=== PATIENT | male | born 1995 | race Caucasian/White ===

== ENCOUNTER 2022-10-20 11:47 | Emergency (ER) | payer SELFPAY ==
[2022-10-20 11:56] VITALS: BP 150/109; PULSE 84; RESP 16; TEMP 36.6; O2SAT 98
--- NOTE | 2022-10-20 13:49 | W.ED.GENAD ---
Discharge Plan Disposition Patient Disposition: Home Condition: Poor Discharge Details Clinical Impression: Otitis externa, Mass of right parotid gland Primary Care Provider: Unknown,Unknown ED Provider: Kristie Fisher Home Meds and New Rx's Prescriptions: Continued ibuprofen 200 MG tablet 1 tab PO PRN PRN Discharge Instructions Instructions: Ciprofloxacin/Dexamethasone (Into the ear), Otitis Externa (ED) Additional Instructions: Your exam and imaging are concerning for signifcant infection to your outter ear. Please take the oral antibiotics as prescribed. Take a probiotic with this. Please instill 4 drops of the Ciprodex twice a day for the next week. Please call ENT tomorrow, number listed below, to schedule follow up with Dr. Hernandez in the next week. They will ensure you are recovering from your infection and continue to evaluate you for the mass in your parotid gland. If you develop fevers/chills, increase pain, difficulty swallowing or other new/worsening symptoms please seek care urgently once again. Referrals: Elder Hernandez MD [ [facility] STAFF PHYSICIAN] - Discharge Data Discharge Date/Time-TO BE ENTERED AT DEPARTURE: 10/20/22 16:26 Medical Decision Making Patient is a pleasant 27-year-old male presenting today with chief complaint of right ear pain. He reports that he began about 8 days ago. He states that he felt like pain was improving about 3 days ago and then significantly worsened yesterday. States that he has been having drainage from the right ear. States that about 2 weeks ago he had a cold which seemed to lead into the right ear pain although his other URI symptoms had improved at the time of onset of discomfort. States that now he is not able to hear anything at the right-sided ear. Denies any fevers. On exam, patient appears nontoxic. He is hypertensive. Afebrile. He has significant swelling of the external ear canal on the right side, unable to visualize the right tympanic membrane associated with the significant swelling. He does have some discharge in the right ear. He also has pain with palpation over the mastoid an area of swelling and fluctuance extending just inferior to the ear along the mandibular angle. Concern for potential mastoiditis and possible abscess. Plan for CT with contrast as well as baseline labs. We will begin IV clindamycin. Labs reviewed, no significant abnormality. Reviewed CT, will consult with ENT. Contact by radiologist who advised parotid mass. No mastoiditis. Notable inflammatory changes to the right ear canal. Parotid appears more consistent with mass, he advises urgent ENT evaluation. Consulted with Dr. Hernandez with ENT. He reviewed the CT remotely. He advised that patient has raging otitis externa, possible mass int he deep parotid. He aslo recommended reviewing the CT again with radiologist as there was question for meningeal enhancement. He advised putting patient on ciprodex, oral cipro and that he will see him in the office for bx. Spoke again with radiology. He advised no evidence of meningeal enhancement. MAXILLARY SINUSES: There is prominent mucosal thickening throughout the right maxillary sinus and right ostiomeatal unit.? In addition, there is a small defect in the medial wall of the right maxillary sinus which may be postsurgical. There is also also some mucosal thickening in the anterior medial wall of the left maxillary sinus.? Mucosal thickening also noted in the right sphenoid sinus.? Left sphenoid sinus is clear.? There is mild mucosal thickening in the right frontal sinus.? Mild mucosal thickening in ethmoidal air cells. There is no evidence of bone dehiscence. The nasal septum is deviated towards the left side.? There is a left-sided nasal septal spur.? Orbits: Unremarkable. Other: There is a large enhancing mass in the right parotid gland which measures approximately 6 cm wide by 4 cm AP by 5.5 cm craniocaudal and which involves both the superficial and deep lobes of the right parotid gland..? There is some overlying fat tissue streaking.? Slightly prominent regional lymph nodes are noted measuring up to 1.4 cm size.? There appear to be a few calcifications in the superior aspect of the gland.? This enhancing mass contains vessels.? The opposite-left parotid gland appears unremarkable. There also contiguous findings with thickening of the aparicio of the right external auditory canal.? There is also some fluid in the middle ear cavity some fluid in the ipsilateral right mastoid air cells. No obvious calcifications noted within Stensen's/parotid duct. The submandibular glands appear unremarkable. IMPRESSION: 1.? There is a large enhancing mass involving both the deep and superficial lobes of the right parotid gland, measuring approximately 6 cm wide by 4 cm AP by 5.5 cm craniocaudal.? Main considerations are for infectious process versus neoplasm the parotid. 2.? There is abnormal thickening of the ipsilateral right external auditory canal.? Probably consistent with otitis externa.? There is also some fluid in the right middle ear cavity and right mastoid air cells.. Prominent mucosal thickening in the right maxillary sinus with evidence of possible prior endoscopic sinus surgery.? Small defect noted in the medial wall the right maxillary sinus.? Lesser amount of mucosal thickening noted in left maxillary sinus, right sphenoid sinus, and frontal sinuses.? No bone dehiscence evident. ENT consultation recommended both oral and drop abx. Advised Ciprodex in ear. He advised that he will see the patietn in the office for further evaluation of the parotid mass that has be present for several years. He did not recommend drainage or immediate intervention at this tinme. Discussed finding and recommendations with patient. He is concerned that he does not have insurance currently, I have asked our care management team to assist with this. Will start on abx. encouraged hydration. Advised on supportive measurements. Strict return precautions are discussed. All of his questions and concerns were discussed, he is in agreement with this plan. Sign Out No HPI General Date/Time Provider Initiated Documentation: 10/20/22 13:38. Limitations to Documentation: no limitations. Information obtained by: patient and old records reviewed. History of Present Illness 27 year old M presents to the emergency department with the chief complaint of right ear pain, right sided facial swelling, described as moderate, with intensity rated at 7. Quality is described as aching, and is localized to the face. Patient neck. Patient started experiencing this week(s) (parotid swelling has been ongoing for years, unclear if progressive change) and it has been constant. No relieving factors improve symptom(s), No exacerbating factors reported . Patient notes fever/chills, headaches and malaise; denies chest pain, cough, nausea/vomiting, rash, shortness of breath and weakness. Patient did receive the following treatments prior to arrival, none Related Data Home Medications Medication Instructions Recorded Confirmed ibuprofen 200 mg tablet 1 tab PO PRN PRN 07/25/15 10/27/22 Allergies Allergy/AdvReac Type Severity Reaction Status Date / Time No Known Allergies Allergy Unverified 10/27/22 10:29 General Stated Complaint: EarProblem DEBBIE: 4 Review of Systems Constitutional Constitutional: Reports as per HPI Eyes Eyes: Reports as per HPI, Denies eye discharge and Denies irritation ENT Ears, Nose, Mouth, and Throat: Reports as per HPI Cardiovascular Cardiovascular: Reports as per HPI, Denies chest pain and Denies dyspnea Respiratory Respiratory: Reports as per HPI and Denies dyspnea Gastrointestinal Gastrointestinal: Reports as per HPI, Denies abdominal pain, Denies change in bowel habits, Denies nausea and Denies vomiting Integumentary/Breasts Skin/Breast: Reports as per HPI and Denies rash Neurologic Neurologic: Reports as per HPI [facility] All Active Problems (Updated 10/20/22 @ 16:17 by OSMANI Reeves) Otitis externa (Acute) Mass of right parotid gland (Acute) Social History Smoking/Tobacco Use Status: Current every day Tobacco Type: cigarettes Smoking risk assessment performed?: Yes Drug use: Occasionally Substance use type: does not use Do you feel safe at home: Yes Do you feel safe in your relationship?: Yes Exam Const General: cooperative, healthy appearing, comfortable, no acute distress, well developed and well groomed Nutritional Appearance: average body habitus and well nourished Orientation: alert and awake HENMT Head: normal to inspection, normocephalic and atraumatic Ears: hearing grossly normal bilaterally, external ears normal, right TM abnormal (unable to visualized TM, canal is swollen, erythematous with white discharg), mastoid abnormal (right tender) and periauricular adenopathy General nose exam: external nose normal and nares normal Face and sinus: sinuses nontender, face asymmetric (swelling right parotid), no crepitus and no erythema Mouth: oral mucosae normal, lip normal, tongue normal, oropharynx normal and moist mucous membranes Teeth and gingiva: dentition normal Throat: posterior oropharynx normal, tonsils normal and uvula midline Eyes General: appearance normal, both eyes and all related structures Neck Neck: normal visual inspection, full ROM, no meningeal signs and lymphadenopathy Resp Effort & Inspection: normal respiratory effort, able to speak in complete sentences and no respiratory distress Auscultation: clear to auscultation bilaterally, no rales, no rhonchi and no wheezes Cardio Rate: regular rate Rhythm: regular rhythm Heart Sounds: S1 normal and S2 normal Skin General skin exam: no rashes or lesions noted Neuro General: patient alert and patient awake Cognition: normal cognition Speech: speech normal Gait: normal gait Psych Appearance: grossly normal and well kempt Mental Status: mental status grossly normal Speech and Movement: speech and movement normal Course Vital Signs Vital signs: Vital Signs Temperature 36.6 C 10/20/22 11:56 Pulse 84 10/20/22 11:56 Respiratory Rate 16 10/20/22 11:56 Blood Pressure 150/109 H 10/20/22 11:56 Pulse Oximetry 98 10/20/22 11:56 Temperature 36.6 C 10/20/22 11:56 Temperature Source Temporal Artery Scan 10/20/22 11:56 Pulse 84 10/20/22 11:56 Respiratory Rate 16 10/20/22 11:56 Respiratory Effort 10/20/22 12:00 Blood Pressure 150/109 H 10/20/22 11:56 Blood Pressure Position Sitting 10/20/22 11:56 Pulse Oximetry 98 10/20/22 11:56 Oxygen Delivery Method Room Air 10/20/22 11:56 Oxygen Flow Rate 0 10/20/22 11:56 Pain Level 7 10/20/22 12:01 PAWSS Have you Been Recently Intoxicated or Drunk Within the Last 30 days?: Yes Have you Ever Experienced Previous Episodes of Alcohol Withdrawal?: No Have you ever Experienced Withdrawal Seizures?: No Have you ever Experienced Delirium Tremens(DT)s?: No Have you ever undergone Alcohol Rehabilitation Treatment (i.e, inpt ot outpatient treatment programs)?: No Have you ever Experienced Blackouts?: No Have you ever Combined Alcohol with other Downers within the last 90 days?: No Have you ever Combined Alcohol with any other Substance of Abuse during the last 90 days?: No Positive Blood Alcohol level on Presentation? [PCS.BAL]: No Evidence of Increased Autonomic Activity (i.e. HR>120, tremor, sweating, agitation, nausea)?: No Result: 1
[2022-10-20 14:26] LABS: Abs Immature Grans 0.03 10^3/uL (0.0-0.06); Absolute Basophil Count 0.03 10^3/uL (0.0-0.2); Absolute Eosinophil Count 0.12 10^3/uL (0.0-0.7); Absolute Neutrophil Count 6.62 10^3/uL (1.2-6.7); Basophils % 0.3; Eosinophils % 1.3; HCT 48.5 % (40.0-50.0); Immature Grans % 0.3; Lymphocytes % 16.5; MCH 27.7 pg (27.0-33.0); MCV 84 fL (80-95); MPV 10.4 fL (8.0-11.0); Monocytes % 8.8; Neutrophils % 72.8; Platelet Count 196 10^3/uL (130-400); RBC 5.78 10^6/uL (4.36-5.78); RDW 12.2 % (11.8-14.1); RDW-SD 37.2 fL
[2022-10-20] MEDS: Omnipaque 350 MG/ML 100 ML BTL IJ (14:36)
[2022-10-20] MEDS: Normal Saline - Diluent 50 ML VIAL IV (14:37)
--- NOTE | 2022-10-20 14:38 | DI.CT_ITS ---
Exam(s) CT SINUS W EXAM: CT SINUS W CLINICAL HISTORY: right ear pain, swelling, mastoid pain, fluctuance. TECHNIQUE: Imaging Protocol: Axial computed tomography images with coronal and sagittal reformatted images were created and reviewed. No IV Contrast COMPARISON: No exams were available for comparison FINDINGS: MAXILLARY SINUSES: There is prominent mucosal thickening throughout the right maxillary sinus and right ostiomeatal unit . In addition, there is a small defect in the medial wall of the right maxillary sinus which may be postsurgical. There is also also some mucosal thickening in the anterior medial wall of the left maxillary sinus. Mucosal thickening also noted in the right sphenoid sinus. Left sphenoid sinus is clear. There is m ild mucosal thickening in the right frontal sinus. Mild mucosal thickening in ethmoidal air cells. There is no evidence of bone dehiscence. The nasal septum is deviated towards the left side. There is a left-sided nasal septal spur. Orbits: Unremarkable. Other: There is a large enhancing mass in the right parotid gland which measures approximately 6 cm w bhupendra by 4 cm AP by 5.5 cm craniocaudal and which involves both the superficial and deep lobes of the r ight parotid gland.. There is some overlying fat tissue streaking. Slightly prominent regional lymp h nodes are noted measuring up to 1.4 cm size. There appear to be a few calcifications in the superi or aspect of the gland. This enhancing mass contains vessels. The opposite-left parotid gland appea rs unremarkable. There also contiguous findings with thickening of the aparicio of the right external auditory canal. Th ere is also some fluid in the middle ear cavity some fluid in the ipsilateral right mastoid air cells . No obvious calcifications noted within Stensen's/parotid duct. The submandibular glands appear unremarkable. IMPRESSION: 1. There is a large enhancing mass involving both the deep and superficial lobes of the right paroti d gland, measuring approximately 6 cm wide by 4 cm AP by 5.5 cm craniocaudal. Main considerations ar e for infectious process versus neoplasm the parotid. 2. There is abnormal thickening of the ipsilateral right external auditory canal. Probably consiste nt with otitis externa. There is also some fluid in the right middle ear cavity and right mastoid ai r cells.. Prominent mucosal thickening in the right maxillary sinus with evidence of possible prior endoscopic sinus surgery. Small defect noted in the medial wall the right maxillary sinus. Lesser amount of mu cosal thickening noted in left maxillary sinus, right sphenoid sinus, and frontal sinuses. No bone d ehiscence evident. ENT consultation recommended. Report discussed with ER physician. RADIATION DOSE DELIVERED: 621.22mGy.cm Total DLP DATA REPOSITORY: All CT scans at this facility are submitted to the National Radiology Data Registry (NRDR) Dose Index Registry (DIR) with the [employer] ([employer]). RADIATION OPTIMIZATION: All CT scans at this facility use at least one of these dose optimization te chniques: automated exposure control; mA and/or kV adjustment per patient size (includes targeted exa ms where dose is matched to clinical indication); or iterative reconstruction.
[2022-10-20 14:40] LABS: ALT 46 U/L (16-63); AST 22 U/L (15-37); Albumin 3.9 g/dL (3.4-5.0); Alkaline Phosphatase 104 U/L (46-116); Anion Gap 7.9 mmol/L (3-11); BUN 11 mg/dL (7-18); Bilirubin, Total 0.8 mg/dL (0.2-1.0); CO2 28.1 mmol/L (21.0-32.0); CREATININE 0.9 mg/dL (0.70-1.30); Chloride 102 mmol/L (98-107); Estimated GFR 119.31 (mL/min/1.73m2); Glucose 102 mg/dL (74-106); Potassium 4.4 mmol/L (3.5-5.1); Sodium 138 mmol/L (136-145); Total Protein 7.7 g/dL (6.4-8.2)
[2022-10-20 15:50] VITALS: PULSE 70; RESP 18; O2SAT 99
[2022-10-20] MEDS: Ciprofloxacin 250 MG TAB 750 MG PO (16:01)
[2022-10-20] MEDS: Ciprofloxacin/Dexameth. 7.5 ML BTL AD (16:01)
--- NOTE | 2022-10-20 16:01 | NUR.NOTE ---
Nursing Note: RERFERRAL TO ENT AND CM
--- NOTE | 2022-10-20 16:24 | PDOC.ERCMPRO ---
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 CM faxed NASRIN a referral, patient needs help applying for Medicaid and [facility].
== END 2022-10-20 16:26 | disposition home or self-care (01) ==
PROVIDERS: Emergency Provider Physician Assistant
DX: H60.91 Unspecified otitis externa, right ear (principal); K11.8 Other diseases of salivary glands; J34.89 Other specified disorders of nose and nasal sinuses; R59.0 Localized enlarged lymph nodes
CPT/HCPCS: 36415; 80053; 96361; 96365; 99284; 70487; 85025; J3490

== ENCOUNTER 2022-11-05 15:20 | Outpatient (REF) | payer SELFPAY ==
--- NOTE | 2022-11-05 15:00 | PAPNONF_PTH ---
PATIENT: Doc Booth LOC: [facility] U#:[id number] AGE/SX: 27/M ROOM: RE11/05/[address]: Elder Hernandez MD : 1995 BED: DIS: 11/05/2022 SPEC #: [id number] RECD: 11/06/22 12:06 STATUS: KAYLENE REChelsea #: [id number] DIONTE: 11/05/22 15:[address]: Elder Hernandez DEPT: [facility] Cytology RECD BY: Toshia Adams Tissues: 1 - BODY FLUID CYTO-FINE NEEDLE [facility]IRATE[facility] Procedures: BODY FLUID CYTO-FINE NEEDLE ASPIRATE[facility] Comments: [id number] (REFRIGERATED)
== END 2022-11-05 15:21 | disposition home or self-care (01) ==
LOC: LBN 15:20
PROVIDERS: Visit Provider Otolaryngology
DX: R22.1 Localized swelling, mass and lump, neck (principal)
CPT/HCPCS: 88104

== ENCOUNTER 2022-11-11 13:38 | Inpatient (IN) | payer SELFPAY ==
[2022-11-11] VITALS (12 sets, daily range): BP systolic 111–118; BP diastolic 75–80; PULSE 90–110; RESP 16–30; TEMP 33.3–36.7; O2SAT 96–100
--- NOTE | 2022-11-11 13:55 | ED.GENADUL_ITS ---
Discharge Plan Disposition Patient Disposition: Admit to [facility] Condition: Stable Discharge Details Clinical Impression: Spleen laceration Admit Date/Time: 11/11/22 16:49 Admit Provider: Yenny Colin Attending Provider: Yenny Colin Primary Care Provider: Unknown,Unknown ED Provider: Ravinder Roman Medical Decision Making Otherwise healthy 27-year-old male who reports the gradual onset of lower abdominal pain over hours time today. Associated with nausea but no emesis. Has not had a fever. He arrives to the ER with reassuring vital signs, slightly elevated pulse at rest. Exam reveals lower abdominal tenderness, left greater than right. On extensive review of systems the patient will recall that he slipped on the ice this past Thursday but did not develop pain until he was at work this morning. On exam the patient is afebrile, pulse slightly elevated at 90, blood pressure 117/80. Screening labs obtained and he is referred for CT imaging given unclear etiology for the pain. Patient's white count is 20, hematocrit 43, platelets 316. Chemistries unremarkable, BUN is 15 and creatinine 1.3. Normal LFTs. Coags pending. CT exam reveals perisplenic and perihepatic fluid with the density of blood. Subcapsular splenic hematoma approximately 4 cm. Case discussed with on-call surgery, Dr. Colin: We will add blood cultures, initiate antibiotics. Patient to be admitted. Lab Data Lab results reviewed: Yes I reviewed the patient's lab results. Labs: Laboratory Tests Range/Units 11/11/22 11/11/22 11/11/22 14:00 14:00 14:55 WBC (4.4-10.8) 10^3/uL 20.68 H RBC (4.36-5.78) 10^6/uL 5.27 Hgb (13.5-17.5) g/dL 14.7 Hct (40.0-50.0) % 43.4 MCV (80-95) fL 82 MCH (27.0-33.0) pg 27.9 MCHC (32.0-36.0) % 33.9 RDW (11.8-14.1) % 12.1 Plt Count (130-400) 10^3/uL 316 MPV (8.0-11.0) fL 10.4 Immature Gran % 0.8 Neutrophils % 82.7 Lymphocytes % 11.0 Monocytes % 4.9 Eosinophils % 0.3 Basophils % 0.3 Nucleated RBC % (0.0-0.3) % 0.0 Absolute Neutrophils (1.2-6.7) 10^3/uL 17.10 H Absolute Lymphocytes (1.2-3.4) 10^3/uL 2.27 Absolute Monocytes (0.1-0.8) 10^3/uL 1.01 H Absolute Eosinophils (0.0-0.7) 10^3/uL 0.06 Absolute Basophils (0.0-0.2) 10^3/uL 0.06 PT (9.3-11.0) sec INR (0.9-1.1) APTT (21.0-27.5) sec Sodium (136-145) mmol/L 138 Potassium (3.5-5.1) mmol/L 3.9 Chloride (98-107) mmol/L 104 Carbon Dioxide (21.0-32.0) mmol/L 23.3 Anion Gap (3-11) mmol/L 10.7 BUN (7-18) mg/dL 15 Creatinine (0.70-1.30) mg/dL 1.3 Est GFR (CKD-EPI 2020) (mL/min/1.73m2) 76.74 Glucose (74-106) mg/dL 182 H Calcium (8.5-10.1) mg/dL 8.4 L Magnesium (1.8-2.4) mg/dL 1.7 L Total Bilirubin (0.2-1.0) mg/dL 0.4 AST (15-37) U/L 28 ALT (16-63) U/L 49 Alkaline Phosphatase (46-116) U/L 87 Total Protein (6.4-8.2) g/dL 7.3 Albumin (3.4-5.0) g/dL 3.8 Lipase (73-393) U/L 44 Urine Color (Yellow) Yellow Urine Clarity (Clear) Clear Urine pH (5-8) 6.0 Ur Specific [place] (1.005-1.025) >= 1.030 H Urine Protein (Negative) mg/dL Trace H Urine Ketones (Negative) mg/dL Negative Urine Blood (Negative) Negative Urine Nitrite (Negative) Negative Urine Bilirubin (Negative) Negative Urine Urobilinogen (Up TO 0.2) EU/dL 0.2 Ur Leukocyte Esterase (Negative) Negative Urine RBC (0-2) HPF 0-2 Urine WBC (0-5) HPF 0-2 Ur Epithelial Cells (Negative) HPF Rare Urine Crystals (Negative) HPF Negative Urine Bacteria (Negative) HPF Negative Urine Casts (Negative) LPF Negative Urine Mucus (Negative) Trace Ur Culture Indicated? No Urine Glucose (Negative) mg/dL Negative COVID-19 Source SARS-CoV-2 (PCR) (Negative) Monoscreen (Negative) Patient ABO/Rh Antibody Screen Range/Units 11/11/22 11/11/22 11/11/22 15:25 15:25 15:25 WBC (4.4-10.8) 10^3/uL RBC (4.36-5.78) 10^6/uL Hgb (13.5-17.5) g/dL Hct (40.0-50.0) % MCV (80-95) fL MCH (27.0-33.0) pg MCHC (32.0-36.0) % RDW (11.8-14.1) % Plt Count (130-400) 10^3/uL MPV (8.0-11.0) fL Immature Gran % Neutrophils % Lymphocytes % Monocytes % Eosinophils % Basophils % Nucleated RBC % (0.0-0.3) % Absolute Neutrophils (1.2-6.7) 10^3/uL Absolute Lymphocytes (1.2-3.4) 10^3/uL Absolute Monocytes (0.1-0.8) 10^3/uL Absolute Eosinophils (0.0-0.7) 10^3/uL Absolute Basophils (0.0-0.2) 10^3/uL PT (9.3-11.0) sec 10.7 INR (0.9-1.1) 1.1 APTT (21.0-27.5) sec 24.9 Sodium (136-145) mmol/L Potassium (3.5-5.1) mmol/L Chloride (98-107) mmol/L Carbon Dioxide (21.0-32.0) mmol/L Anion Gap (3-11) mmol/L BUN (7-18) mg/dL Creatinine (0.70-1.30) mg/dL Est GFR (CKD-EPI 2020) (mL/min/1.73m2) Glucose (74-106) mg/dL Calcium (8.5-10.1) mg/dL Magnesium (1.8-2.4) mg/dL Total Bilirubin (0.2-1.0) mg/dL AST (15-37) U/L ALT (16-63) U/L Alkaline Phosphatase (46-116) U/L Total Protein (6.4-8.2) g/dL Albumin (3.4-5.0) g/dL Lipase (73-393) U/L Urine Color (Yellow) Urine Clarity (Clear) Urine pH (5-8) Ur Specific [place] (1.005-1.025) Urine Protein (Negative) mg/dL Urine Ketones (Negative) mg/dL Urine Blood (Negative) Urine Nitrite (Negative) Urine Bilirubin (Negative) Urine Urobilinogen (Up TO 0.2) EU/dL Ur Leukocyte Esterase (Negative) Urine RBC (0-2) HPF Urine WBC (0-5) HPF Ur Epithelial Cells (Negative) HPF Urine Crystals (Negative) HPF Urine Bacteria (Negative) HPF Urine Casts (Negative) LPF Urine Mucus (Negative) Ur Culture Indicated? Urine Glucose (Negative) mg/dL COVID-19 Source SARS-CoV-2 (PCR) (Negative) Monoscreen (Negative) Negative Patient ABO/Rh O Positive Antibody Screen NEGATIVE Range/Units 11/11/22 16:25 WBC (4.4-10.8) 10^3/uL RBC (4.36-5.78) 10^6/uL Hgb (13.5-17.5) g/dL Hct (40.0-50.0) % MCV (80-95) fL MCH (27.0-33.0) pg MCHC (32.0-36.0) % RDW (11.8-14.1) % Plt Count (130-400) 10^3/uL MPV (8.0-11.0) fL Immature Gran % Neutrophils % Lymphocytes % Monocytes % Eosinophils % Basophils % Nucleated RBC % (0.0-0.3) % Absolute Neutrophils (1.2-6.7) 10^3/uL Absolute Lymphocytes (1.2-3.4) 10^3/uL Absolute Monocytes (0.1-0.8) 10^3/uL Absolute Eosinophils (0.0-0.7) 10^3/uL Absolute Basophils (0.0-0.2) 10^3/uL PT (9.3-11.0) sec INR (0.9-1.1) APTT (21.0-27.5) sec Sodium (136-145) mmol/L Potassium (3.5-5.1) mmol/L Chloride (98-107) mmol/L Carbon Dioxide (21.0-32.0) mmol/L Anion Gap (3-11) mmol/L BUN (7-18) mg/dL Creatinine (0.70-1.30) mg/dL Est GFR (CKD-EPI 2020) (mL/min/1.73m2) Glucose (74-106) mg/dL Calcium (8.5-10.1) mg/dL Magnesium (1.8-2.4) mg/dL Total Bilirubin (0.2-1.0) mg/dL AST (15-37) U/L ALT (16-63) U/L Alkaline Phosphatase (46-116) U/L Total Protein (6.4-8.2) g/dL Albumin (3.4-5.0) g/dL Lipase (73-393) U/L Urine Color (Yellow) Urine Clarity (Clear) Urine pH (5-8) Ur Specific [place] (1.005-1.025) Urine Protein (Negative) mg/dL Urine Ketones (Negative) mg/dL Urine Blood (Negative) Urine Nitrite (Negative) Urine Bilirubin (Negative) Urine Urobilinogen (Up TO 0.2) EU/dL Ur Leukocyte Esterase (Negative) Urine RBC (0-2) HPF Urine WBC (0-5) HPF Ur Epithelial Cells (Negative) HPF Urine Crystals (Negative) HPF Urine Bacteria (Negative) HPF Urine Casts (Negative) LPF Urine Mucus (Negative) Ur Culture Indicated? Urine Glucose (Negative) mg/dL COVID-19 Source Nasal/Nares SARS-CoV-2 (PCR) (Negative) Negative Monoscreen (Negative) Patient ABO/Rh Antibody Screen HPI General Mode of arrival: ambulatory . Date/Time Provider Initiated Documentation: 11/11/22 13:45 . Limitations to Documentation: no limitations . Information obtained by: patient . History of Present Illness 27 year old M presents to the emergency department with the chief complaint of Lower abdominal pain since this morning, described as moderate, and is localized to the abdomen. Patient started experiencing this hour(s) and it has been constant. No relieving factors improve symptom(s), No exacerbating factors reported . Patient notes loss of appetite. Patient did receive the following treatments prior to arrival, none Related Data Home Medications Medication Instructions Recorded Confirmed Unknown [No Known Home Meds] 11/11/22 11/11/22 Allergies Allergy/AdvReac Type Severity Reaction Status Date / Time No Known Allergies Allergy Unverified 11/11/22 16:30 General Stated Complaint: Abd Prob DEBBIE: 3 Review of Systems Narrative: No vomiting, no change to stool or urine. No fever noted. Recently well. 8 systems reviewed and otherwise negative PFSH All Active Problems Spleen laceration (Acute) Otitis externa (Acute) Mass of right parotid gland (Acute) Social History Smoking/Tobacco Use Status: Current every day Tobacco Type: cigarettes Smoking risk assessment performed?: Yes Alcohol Intake: current Alcohol Intake frequency: a few times a week Alcohol type: beer Drug use: Occasionally Substance use type: does not use Do you feel safe at home: Yes Do you feel safe in your relationship?: Yes Exam Narrative Exam Narrative: GEN: awake, alert, oriented 3. Pleasant, well groomed, interactive. HEAD: Normocephalic, atraumatic ENT: Mucous membranes moist, oropharynx unremarkable, External ear exam unremar kable EYES: PERRL, EOMI NECK: Full ROM, no KYLER, no menigismus CHEST/RESP: Nontender, clear to auscultation bilateral, no wheeze/rhonchi/rales CARDIOVASCULAR: RRR, no murmur, rub shaina. 2+ Rad pulse bilateral ABDOMEN: Soft, tender in the lower abdomen with mild rebound present, no mass. +Bowel sounds EXT: Full ROM, no edema, no rash Neuro: Grossly normal neurologic exam, conversant, interactive. Psych: Speech fluent, thoughts congruent, affect normal Course Vital Signs Vital signs: Vital Signs Temperature 33.3 C L 11/11/22 13:42 Pulse 99 H 11/11/22 13:42 Respiratory Rate 18 11/11/22 13:42 Blood Pressure 117/80 11/11/22 13:42 Pulse Oximetry 100 11/11/22 13:42 Temperature 33.3 C L 11/11/22 13:42 Temperature Source Temporal Artery Scan 11/11/22 13:42 Pulse 99 H 11/11/22 13:42 Respiratory Rate 18 11/11/22 13:42 Blood Pressure 117/80 11/11/22 13:42 Blood Pressure Position Sitting 11/11/22 13:42 Pulse Oximetry 100 11/11/22 13:42 Oxygen Delivery Method Room Air 11/11/22 13:42 Oxygen Flow Rate 0 11/11/22 13:42
[2022-11-11] MEDS: Ketorolac 15 MG/ML VIAL IVP (14:03)
[2022-11-11] MEDS: Ondansetron 4 MG/2 ML VIAL IVP ×2 (14:04→23:39)
[2022-11-11] MEDS: Normal Saline 1,000 ML 1000 ML IV (14:04)
[2022-11-11 14:05] LABS: Abs Immature Grans 0.17 10^3/uL (0.0-0.06); Absolute Basophil Count 0.06 10^3/uL (0.0-0.2); Absolute Eosinophil Count 0.06 10^3/uL (0.0-0.7); Absolute Lymphocyte Count 2.27 10^3/uL (1.2-3.4); Absolute Monocyte Count 1.01 10^3/uL (0.1-0.8); Basophils % 0.3; Eosinophils % 0.3; HCT 43.4 % (40.0-50.0); HGB 14.7 g/dL (13.5-17.5); Immature Grans % 0.8; MCH 27.9 pg (27.0-33.0); MCHC 33.9 % (32.0-36.0); MCV 82 fL (80-95); MPV 10.4 fL (8.0-11.0); Monocytes % 4.9; Neutrophils % 82.7; Platelet Count 316 10^3/uL (130-400); RBC 5.27 10^6/uL (4.36-5.78); RDW 12.1 % (11.8-14.1); RDW-SD 36.7 fL; WBC 20.68 10^3/uL (4.4-10.8)
--- NOTE | 2022-11-11 14:15 | DI.CT_ITS ---
Exam(s) CT ABDOMEN PELVIS W EXAM: CT ABDOMEN PELVIS W CLINICAL HISTORY: L > R lower abd pain, WBC 20. TECHNIQUE: Imaging Protocol: Axial computed tomography images with coronal and sagittal reformatted images were created and reviewed CONTRAST MATERIAL: Intravenous: Omnipaque-350 100cc Oral: None COMPARISON: No exams were available for comparison FINDINGS: VISUALIZED LUNG BASES: No nodules nor pleural effusions evident. ABDOMEN: There is abnormal perihepatic and perisplenic fluid which has density greater than clear serous fluid in same is true for about the moderate amount of fluid in the pelvis. Largest concentration of flui d around the spleen and appears subcapsular and there are suggestions of spine splenic lacerations to wards the superior aspect of the spleen and also in homogeneous enhancement inferiorly. Thickness of the subcapsular splenic fluid-hematoma is 4 cm. LIVER: There are no focal hepatic lesions evident. No obvious laceration. Mild steatosis. Perihepa tic fluid I suspect this is coming from the spleen GALLBLADDER/BILIARY: No obvious gallbladder pathology. CBD is not dilated. PANCREAS: No evidence of pancreatic mass nor dilatation of the pancreatic duct. SPLEEN: Abnormal, as above. ADRENALS: There are no significant adrenal masses. KIDNEYS:No evidence of renal laceration or subcapsular hematoma. There is a solitary tiny 1-2 millim eter calculus in lower pole the left kidney, nonobstructive. No other focal findings in either kidne y. No cysts nor solid masses in the kidneys.. ABDOMINAL AORTA: Abdominal aorta is intact. Appears unremarkable. LYMPH NODES:There is no retroperitoneal nor paraaortic adenopathy. ABDOMINAL WALL: No evidence of significant anterior abdominal wall nor inguinal hernia. GI: No evidence of bowel wall nor mesenteric hematoma. PELVIS: GI: No evidence of appendicitis.No evidence of sigmoid diverticulitis. LYMPH NODES: There is no intrapelvic nor inguinal adenopathy. REPRODUCTIVE: Prostate size normal. Seminal vesicles unremarkable URINARY BLADDER: Appears intact. OSSEOUS: No fractures. IMPRESSION: 1. There is fluid-hematoma around the spleen which appears mostly subcapsular and measuring 4-5 cm th ick. There appear to be splenic lacerations. There is some fluid around the liver which is probably also blood but not associated with hepatic laceration. There is also fluid-blood in the pelvis and paracolic gutters. I suspect the etiology is splenic trauma here. 2. No obvious rib fractures and no left lung base infiltrate nor contusion. No pleural effusions. 3. Kidneys unremarkable. Abdominal aorta unremarkable Report called by myself to the ER physician. RADIATION DOSE DELIVERED: 1,449.23mGy.cm Total DLP DATA REPOSITORY: All CT scans at this facility are submitted to the National Radiology Data Registry (NRDR) Dose Index Registry (DIR) with the [employer] (ACR). RADIATION OPTIMIZATION: All CT scans at this facility use at least one of these dose optimization te chniques: automated exposure control; mA and/or kV adjustment per patient size (includes targeted exa ms where dose is matched to clinical indication); or iterative reconstruction.
[2022-11-11 14:26] LABS: ALT 49 U/L (16-63); AST 28 U/L (15-37); Albumin 3.8 g/dL (3.4-5.0); Alkaline Phosphatase 87 U/L (46-116); Anion Gap 10.7 mmol/L (3-11); BUN 15 mg/dL (7-18); Bilirubin, Total 0.4 mg/dL (0.2-1.0); CO2 23.3 mmol/L (21.0-32.0); CREATININE 1.3 mg/dL (0.70-1.30); Calcium 8.4 mg/dL (8.5-10.1); Chloride 104 mmol/L (98-107); Estimated GFR 76.74 (mL/min/1.73m2); Glucose 182 mg/dL (74-106); Lipase 44 U/L (73-393); Magnesium 1.7 mg/dL (1.8-2.4); Potassium 3.9 mmol/L (3.5-5.1); Sodium 138 mmol/L (136-145); Total Protein 7.3 g/dL (6.4-8.2)
[2022-11-11] MEDS: Omnipaque 350 MG/ML 100 ML BTL IJ (14:41)
[2022-11-11] MEDS: Normal Saline - Diluent 50 ML VIAL IJ (14:42)
[2022-11-11 15:05] LABS: Bilirubin Negative (Negative); Blood Negative (Negative); Clarity Clear (Clear); Glucose Negative (Negative); Ketones Negative (Negative); Leukocyte Esterase Negative (Negative); Nitrite Negative (Negative); Specific Gravity >= 1.030 (1.005-1.025); Urobilinogen 0.2 EU/dL (Up TO 0.2)
[2022-11-11 15:13] LABS: Epithelial Cells Rare HPF (Negative); RBC 0-2 HPF (0-2); WBC 0-2 HPF (0-5)
[2022-11-11 15:14] LABS: Bacteria Negative HPF (Negative); C & S Indicated? No; Casts Negative LPF (Negative); Crystals Negative HPF (Negative); Mucus Trace (Negative)
[2022-11-11 15:46] LABS: Mono Screening Negative (Negative)
[2022-11-11 15:53] LABS: INR 1.1 (0.9-1.1); PTT Activated 24.9 sec (21.0-27.5); Prothrombin Time 10.7 sec (9.3-11.0)
[2022-11-11 16:34] LABS: Source Nasal/Nares
[2022-11-11] MEDS: MORPHine 10 MG/ML VIAL 2 MG IVP (16:34)
--- NOTE | 2022-11-11 16:45 | DI.RAD_ITS ---
Exam(s) XR CHEST 2V PA LATERAL EXAM: XR CHEST 2V PA LATERAL CLINICAL HISTORY: L trauma. TECHNIQUE: 2D digital imaging was performed. COMPARISON: No exams were available for comparison FINDINGS: 2 views: Heart size is normal. The mediastinum is not widened. Lungs are clear. No infiltrates nor pleural effusions. IMPRESSION: No acute pulmonary findings. DATA REPOSITORY: RADIATION DOSE DELIVERED:
--- NOTE | 2022-11-11 16:56 | HPE_ITS ---
Date of service: 11/11/22 Time of Service: 16:56 Assessment and Plan Assessment and plan (1) Spleen laceration: Status: Acute Assessment and plan: Grade III. I did review the CT w/ rads. assoc w/ slip and fall (2) Leukocytosis (leucocytosis): Status: Acute Assessment and plan: unclear significance of this- if it represents infection vs stress reaction repeat cbc and procal in am. cxr- neg. UA/blood cultures- pd holding abx at this time. Pt does not exhibit signs of infection or hypotension. Will continue to monitor closely. mechanical DVT prophalaxis only History of Present Illness Narrative: ER Notes: Otherwise healthy 27-year-old male who reports the gradual onset of lower abdominal pain over hours time today.? Associated with nausea but no emesis.? Has not had a fever.? He arrives to the ER with reassuring vital signs, slightly elevated pulse at rest.? Exam reveals lower abdominal tenderness, left greater than right.? On extensive review of systems the patient will recall that he slipped on the ice this past Thursday but did not develop pain until he was at work this morning Patient admits to a slip and fall on Thursday night while he was walking home. He does admit to daily to every other day alcohol use. He is a pack-a-day smoker. No other drug use. He works in construction. He denies any injury on the job. He started complaining of abdominal pain and nausea today. He is not on any blood thinners. She uses Advil on a pretty regular basis. He denies any cough cold flus sore throat or other viral type signs and symptoms. His Monospot was negative. Blood pressure has been stable while he is in the emergency department. His hemoglobin was stable. He is complaining of abdominal pain mostly in the left upper quadrant. He does not have diffuse peritonitis. He does have some distention. He does have good bowel sounds. He has no other medical problems. He denies any cardiac problems/asthma/seizures/diabetes there is no family history of. Easy bruising or bleeding. He is not on any blood thinners. He has not been on steroids recently His only surgery have was a recent parotid biopsy which was significant for lymph tissue. Review of Systems All systems reviewed & are unremarkable except as noted in HPI and below PFSH All Active Problems (Updated 11/11/22 @ 22:03 by Yenny Colin DO) Leukocytosis (leucocytosis) (Acute) Spleen laceration (Acute) grade III Otitis externa (Acute) Mass of right parotid gland (Acute) Social History Smoking/Tobacco Use Status: Current every day Tobacco Type: cigarettes Smoking risk assessment performed?: Yes Alcohol Intake: current Alcohol Intake frequency: a few times a week Alcohol type: beer Drug use: Occasionally Substance use type: does not use Do you feel safe at home: Yes Do you feel safe in your relationship?: Yes Meds Allergies and Home Medications Allergies Allergy/AdvReac Type Severity Reaction Status Date / Time No Known Allergies Allergy Unverified 11/11/22 16:30 Home Medications Medication Instructions Recorded Confirmed Type Unknown [No Known Home Meds] 11/11/22 11/11/22 History Exam Narrative Exam Narrative: PHYSICAL EXAM GENERAL APPEARANCE: Alert, healthy appearance, oriented, x 3,? in no acute distress HYDRATION: Well hydrated HEAD, EYES, EARS, NECK, THROAT: Head is normocephalic, pupils equal, round, reactive to light and accommodation, ocular movement intact, sclera clear and no jaundice. ?Dentition intact. No sore throat.? NECK: no lymphadenopathy.? Trachea midline.? LUNGS: normal respiration/normal chest excursion. ?Clear to auscultation bilaterally. ?No R/R/W ?HEART: Regular rate and rhythm. no murmurs EXTREMITY: No edema or cyanosis.? no leg pain, redness, swelling.? ABDOMEN: mild distention and LUQ pain. +BS Results Labs Result diagrams: 11/11/22 14:00 11/11/22 14:00 Labs: Laboratory Results - last 24 hr 11/11/22 11/11/22 11/11/22 14:00 14:00 14:55 WBC 20.68 H RBC 5.27 Hgb 14.7 Hct 43.4 MCV 82 MCH 27.9 MCHC 33.9 RDW 12.1 Plt Count 316 MPV 10.4 Immature Gran % 0.8 Neutrophils % 82.7 Lymphocytes % 11.0 Monocytes % 4.9 Eosinophils % 0.3 Basophils % 0.3 Nucleated RBC % 0.0 Absolute Neutrophils 17.10 H Absolute Lymphocytes 2.27 Absolute Monocytes 1.01 H Absolute Eosinophils 0.06 Absolute Basophils 0.06 PT INR APTT Sodium 138 Potassium 3.9 Chloride 104 Carbon Dioxide 23.3 Anion Gap 10.7 BUN 15 Creatinine 1.3 Est GFR (CKD-EPI 2020) 76.74 Glucose 182 H Calcium 8.4 L Magnesium 1.7 L Total Bilirubin 0.4 AST 28 ALT 49 Alkaline Phosphatase 87 Total Protein 7.3 Albumin 3.8 Lipase 44 Urine Color Yellow Urine Clarity Clear Urine pH 6.0 Ur Specific [place] >= 1.030 H Urine Protein Trace H Urine Ketones Negative Urine Blood Negative Urine Nitrite Negative Urine Bilirubin Negative Urine Urobilinogen 0.2 Ur Leukocyte Esterase Negative Urine RBC 0-2 Urine WBC 0-2 Ur Epithelial Cells Rare Urine Crystals Negative Urine Bacteria Negative Urine Casts Negative Urine Mucus Trace Ur Culture Indicated? No Urine Glucose Negative COVID-19 Source Monoscreen Patient ABO/Rh Antibody Screen 11/11/22 11/11/22 11/11/22 15:25 15:25 15:25 WBC RBC Hgb Hct MCV MCH MCHC RDW Plt Count MPV Immature Gran % Neutrophils % Lymphocytes % Monocytes % Eosinophils % Basophils % Nucleated RBC % Absolute Neutrophils Absolute Lymphocytes Absolute Monocytes Absolute Eosinophils Absolute Basophils PT 10.7 INR 1.1 APTT 24.9 Sodium Potassium Chloride Carbon Dioxide Anion Gap BUN Creatinine Est GFR (CKD-EPI 2020) Glucose Calcium Magnesium Total Bilirubin AST ALT Alkaline Phosphatase Total Protein Albumin Lipase Urine Color Urine Clarity Urine pH Ur Specific [place] Urine Protein Urine Ketones Urine Blood Urine Nitrite Urine Bilirubin Urine Urobilinogen Ur Leukocyte Esterase Urine RBC Urine WBC Ur Epithelial Cells Urine Crystals Urine Bacteria Urine Casts Urine Mucus Ur Culture Indicated? Urine Glucose COVID-19 Source Monoscreen Negative Patient ABO/Rh O Positive Antibody Screen NEGATIVE 11/11/22 16:25 WBC RBC Hgb Hct MCV MCH MCHC RDW Plt Count MPV Immature Gran % Neutrophils % Lymphocytes % Monocytes % Eosinophils % Basophils % Nucleated RBC % Absolute Neutrophils Absolute Lymphocytes Absolute Monocytes Absolute Eosinophils Absolute Basophils PT INR APTT Sodium Potassium Chloride Carbon Dioxide Anion Gap BUN Creatinine Est GFR (CKD-EPI 2020) Glucose Calcium Magnesium Total Bilirubin AST ALT Alkaline Phosphatase Total Protein Albumin Lipase Urine Color Urine Clarity Urine pH Ur Specific [place] Urine Protein Urine Ketones Urine Blood Urine Nitrite Urine Bilirubin Urine Urobilinogen Ur Leukocyte Esterase Urine RBC Urine WBC Ur Epithelial Cells Urine Crystals Urine Bacteria Urine Casts Urine Mucus Ur Culture Indicated? Urine Glucose COVID-19 Source Nasal/Nares Monoscreen Patient ABO/Rh Antibody Screen Last Vital Signs Temp 33.3 C L 11/11/22 13:42 Pulse 99 H 11/11/22 13:42 Resp 18 11/11/22 13:42 BP 117/80 11/11/22 13:42 Pulse Ox 100 11/11/22 13:42 Time Spent Time spent with Patient: 55-74 minutes Time was spent: preparing to see the patient(eg.review tests), obtaining and/or reviewing separately otained hiistory, ordering medications,tests, procedures, referring, communicating with other health continuum of care manager, indepentently interpreting results, counseling the patient and care coordination
[2022-11-11 17:16] LABS: COVID-19 PCR Negative (Negative)
[2022-11-11] MEDS: MORPHine 2 MG/ML SYR IVP ×3 (17:27→21:32)
[2022-11-11] MEDS: oxyCODONE 5 MG TAB PO (18:00)
[2022-11-11] MEDS: Acetaminophen 500 MG TAB 1000 MG PO ×2 (18:00→23:39)
[2022-11-11] MEDS: Normal Saline Flush 10 ML SYR IVP ×3 (19:31→23:39)
[2022-11-11] MEDS: Polyethylene Glycol 3350 17 GM PACKET PO (21:31)
[2022-11-12 00:48] VITALS: BP 74/50; PULSE 118; RESP 22; TEMP 36.6; O2SAT 96
[2022-11-12 01:01] VITALS: BP 78/62
[2022-11-12 01:48] VITALS: BP 80/54; PULSE 118; RESP 22; TEMP 35.9; O2SAT 97
[2022-11-12 01:52] VITALS: BP 92/60
[2022-11-12] MEDS: Normal Saline Flush 10 ML SYR IVP ×2 (02:19→04:00)
[2022-11-12] MEDS: Normal Saline 500 ML IV (02:20)
[2022-11-12 02:24] LABS: Abs Immature Grans 0.42 10^3/uL (0.0-0.06); Absolute Basophil Count 0.04 10^3/uL (0.0-0.2); Absolute Lymphocyte Count 1.99 10^3/uL (1.2-3.4); Absolute Monocyte Count 0.91 10^3/uL (0.1-0.8); Absolute Neutrophil Count 16.96 10^3/uL (1.2-6.7); Basophils % 0.2; HCT 36.1 % (40.0-50.0); Immature Grans % 2.1; Lymphocytes % 9.8; MCH 28.1 pg (27.0-33.0); MCHC 33.2 % (32.0-36.0); MCV 85 fL (80-95); MPV 10.8 fL (8.0-11.0); Monocytes % 4.5; Neutrophils % 83.4; Platelet Count 320 10^3/uL (130-400); RBC 4.27 10^6/uL (4.36-5.78); RDW 12.7 % (11.8-14.1); RDW-SD 38.5 fL; WBC 20.33 10^3/uL (4.4-10.8)
[2022-11-12 02:37] LABS: C-Reactive Protein 3.46 mg/dL (0.0-0.3)
[2022-11-12 02:56] LABS: D-Dimer 320 ng/mlFEU (<500); Procalcitonin 0.7 ng/mL
[2022-11-12 03:28] VITALS: BP 92/56
[2022-11-12] MEDS: EPINEPHrine 1 MG/10 ML SYR IVP ×2 (03:50→04:21)
[2022-11-12] MEDS: Normal Saline 1,000 ML 1000 ML IV (04:16)
--- NOTE | 2022-11-12 05:05 | EXPE_ITS ---
Date of service: 11/12/22 Time of Service: 05:05 Discharge Plan Disposition Patient Disposition: Discharge Details Reason For Visit: Grade 3 Splenic Laceration Admit Date/Time: 11/11/22 16:49 Admit Provider: Yenny Colin Attending Provider: Yenny Colin Primary Care Provider: Unknown,Unknown Hospital Course Hospital Course: PT was came to the ED c/o abdominal pain that staared 11/11. He fell on the ice on 11/07, CT showed a splenic laceration. He was admitted for pain control and observation. There was a hx of regular alcohol use and CIWA modering was implemntated and close nursing observation. He developed hypotension- see RN notes He received a fluid bolus and repeat labs. Procalcitonin: .7 Hgb 12.1 He got up to the bathroom and had a seizure. He vomited and aspirated. Code was called- please see code run sheet. He was in asytole and pulse never returned. Time of : 11/12/2022 0434. Joelle Booth notified (Mother) 11/12/2022 4:51 Discharge Data Cause of : Aspiration into airway Discharge Date/Time-TO BE ENTERED AT DEPARTURE: 11/12/22 05:17 Discharge Sum: Prov Provider Admitting clinician: Yenny Colin Attending physician on admission: Yenny Colin Pronouncing clinician: Yenny Colin Discharge Sum: Diag PCOD Cause of : Aspiration into lower respiratory tract Contributing Factors (1) Spleen laceration: (2) Leukocytosis (leucocytosis): Discharge Sum: Summary Date and Time Admission Date: 11/11/2300/03/23 16:49 Date of : 11/12/22 Time of : 04:34 Summary Details: PT was came to the ED c/o abdominal pain. He fell on the ice on 11/07, CT showed a splenic laceration. He was admitted for pain control and observation. He denied any Hx of siezures, recreational drug use, or dialy ETOH use. He was on 1hr VS. He developed hypotension. around midnight. He received a fluid bolus; ( hypotension resolved) and repeat labs showed: Procalcitonin: .7 Hgb 12.1 He got up to the bathroom w/ the aid of nursing. Per RN's, he had a seizure- like activity on the toilet. He than vomited (and probably aspirated during the seizure-like activity). He collapsed in the bathroom. Code was called- please see code run sheet. He was in asytole, and pulse never returned. There was a lg amount of vomitus noted in the airways on intubation. Time of : 11/12/2022 0434. Joelle Booth notified (Mother) 11/12/2022 4:51 The case was sent to the ID. Additional Data Confirmation of as documented by pronouncing clinician: no pulse, no respirations, no heart sounds and pupils fixed and dilated Family: contacted Attending/PCP notified?: Yes Attending Physician: Yenny Martinez Was code activated?: Yes Autopsy requested?: Yes land title examiner notified?: Yes Organ bank notified?: Yes Advance directives: No Hospice patient?: No
== END 2022-11-12 05:17 | disposition expired | DRG 816 ==
LOC: ER 16:22 → MS 17:38
PROVIDERS: Admitting Provider Surgery; Emergency Provider Emergency Medicine; Visit Provider Surgery
DX: S36.031A Moderate laceration of spleen, initial encounter (principal); T17.910A Gastric contents in respiratory tract, part unspecified causing asphyxiation, initial encounter; I46.9 Cardiac arrest, cause unspecified; D72.829 Elevated white blood cell count, unspecified; W00.0XXA Fall on same level due to ice and snow, initial encounter; F17.210 Nicotine dependence, cigarettes, uncomplicated; I95.9 Hypotension, unspecified; R56.9 Unspecified convulsions
CPT/HCPCS: 36410; 36415; 80053; 83690; 84145; 86850; 86900; 86901; 86920; 87040; 87635; 96361; 96365; 96366; 96372; 96375; 99285; 71046; 74177; 81003; 81015; 83735; 85025; 85379; 85610; 85730; 86140; 86308; J1885; J2270; J2405; J3490; P9016